=== PATIENT | male | born 1990 | race Caucasian/White ===

== ENCOUNTER 2016-11-17 17:32 | Emergency (ER) | payer MEDICAID ==
[~2016-11-17] VITALS: Ht 175.3 cm; Wt 72.7 kg
[2016-11-17] MEDS ORDERED: OLAN10TA3 PO (17:59)
[2016-11-17] MEDS ORDERED: ACET-784 PO (17:59)
[2016-11-17] MEDS ORDERED: CHLO25 PO (17:59)
[2016-11-17] MEDS ORDERED: VALP250 PO (17:59)
[2016-11-17] MEDS ORDERED: CHLO50I IM (17:59)
[2016-11-17] MEDS ORDERED: LORA-192 PO (17:59)
[2016-11-17] MEDS ORDERED: CLON.5 PO (17:59)
[2016-11-17] MEDS ORDERED: BISA10S PR (17:59)
[2016-11-17] MEDS ORDERED: FE RC (17:59)
[2016-11-17] MEDS ORDERED: SERT50TA12 PO (17:59)
[2016-11-17] MEDS ORDERED: DIPH25 PO (17:59)
[2016-11-17] MEDS ORDERED: MOM30 PO (17:59)
[2016-11-17] MEDS ORDERED: DSS100 PO (17:59)
[2016-11-17 19:14] LABS: BASOPHILS % (AUTO) 0.8 % (0.0-2.0); EOSINOPHILS % (AUTO) 3.3 % (1.0-6.0); HEMATOCRIT 40.1 % (41-53); HEMOGLOBIN 13.8 g/dL (13.5-17.5); LYMPHOCYTES # (AUTO) 1.8 K/uL (1.0-4.8); LYMPHOCYTES % (AUTO) 31.5 % (22.0-44.0); MEAN CORPUSCULAR HEMOGLOBIN 30.5 pg (26.0-34.0); MEAN CORPUSCULAR HGB CONC 34.4 G/dL (31.0-37.0); MEAN CORPUSCULAR VOLUME 89 fL (80-100); MONOCYTES # (AUTO) 0.7 K/uL (0.1-1.0); MONOCYTES % (AUTO) 12.1 % (2.0-9.0); NEUTROPHILS # (AUTO) 2.9 K/uL (1.8-7.7); NEUTROPHILS % (AUTO) 52.3 % (40.0-70.0); PLATELET COUNT (AUTO) 276 K/uL (150-450); RED BLOOD CELL COUNT(AUTO) 4.52 MIL/uL (4.50-5.90); WHITE BLOOD COUNT (AUTO) 5.6 K/uL (4.5-11.0)
[2016-11-17 19:22] LABS: ANION GAP 9 mmol/L (8-16); CALCIUM, TOTAL 9.3 mg/dL (8.8-10.5); CARBON DIOXIDE 28 mmol/L (22-29); CHLORIDE 103 mmol/L (98-107); CREATININE 1.01 mg/dL (0.60-1.30); GLOMERULAR FILTR. RATE CALC > 60 mL/min (>60); POTASSIUM 4.3 mmol/L (3.5-5.1); SODIUM SERUM 140 mmol/L (136-145); UREA NITROGEN, BLOOD 14 mg/dL (7-18)
[2016-11-17 19:29] LABS: ALANINE AMINOTRANSFERASE 75 U/L (12-78); ALBUMIN 3.8 g/dL (3.4-5.0); ASPARTATE AMINOTRANSFERASE 35 U/L (15-37); BILIRUBIN,TOTAL 0.4 mg/dL (0.1-1.0); TOTAL PROTEIN, SERUM 7.3 g/dL (6.4-8.2)
[2016-11-17 19:42] LABS: GLUCOSE, URINE (UA) NEGATIVE (NEGATIVE); KETONES,URINE NEGATIVE (NEGATIVE); LEUKOCYTE ESTERASE ,URINE NEGATIVE (NEGATIVE); OCCULT BLOOD,URINE NEGATIVE (NEGATIVE); PH,URINE 7.5 (5.0-8.0); PROTEIN,URINE NEGATIVE (NEGATIVE)
[2016-11-17 19:45] LABS: ADD UA MICROSCOPIC NO; APPEARANCE,URINE HAZY (CLEAR)
[2016-11-17 20:32] VITALS: BP 120/69
== END 2016-11-17 22:21 | disposition home or self-care (01) ==
LOC: EMS 17:34
DX: R07.9 Chest pain, unspecified (principal); F20.9 Schizophrenia, unspecified
CPT/HCPCS: 93005; 99285

== ENCOUNTER 2024-02-17 16:44 | Emergency (ER) | payer MEDICAID ==
[~2024-02-17] VITALS: Ht 180.3 cm; Wt 73.2 kg
[~2024-02-17 16:44] MED LIST: ACET-784 PO; BISA10SU11 PR; CHLO25TA69 PO; CHLO50I IM; CLON-592 PO; DIPH-1243 PO; DSS100 PO; LORA-192 PO; MAGN-169 PO; NA P266E RC; OLAN10TA74 PO; SERT-158 PO; VALP250C48 PO
[2024-02-17 19:26] VITALS: BP 128/82; PULSE 75; RESP 14; TEMP 98.3; O2SAT 100
[2024-02-17] MEDS ORDERED: ARIP10TA38 PO (20:09)
[2024-02-17] MEDS ORDERED: TRIH5TAB3 PO (20:09)
[2024-02-17] MEDS ORDERED: SERT-440 PO (20:09)
[2024-02-17] MEDS ORDERED: PANT20TA18 PO (20:09)
[2024-02-17] MEDS ORDERED: HALO10TA21 PO (20:09)
[2024-02-17] MEDS ORDERED: DULO-114 PO (20:09)
[2024-02-17] MEDS ORDERED: CHOL200059 PO (20:09)
[2024-02-17] MEDS ORDERED: OLAN15TA98 PO (20:09)
[2024-02-17] MEDS ORDERED: LITH300T PO (20:09)
[2024-02-17] MEDS ORDERED: IBUP-1492 PO (20:12)
[2024-02-17] MEDS: CYCLOBENZAPRINE HCL 10 MG TABLET PO ONE (20:24)
[2024-02-17] MEDS: LIDOCAINE 5% TRANSDERMAL PATCH TD ONE (20:25)
[2024-02-17] MEDS: KETOROLAC TROMETHAMINE 30 MG/ML VIAL IM ONE (20:25)
[2024-02-17 21:15] LABS: BASOPHILS % (AUTO) 0.9 % (0.0-2.0); EOSINOPHILS % (AUTO) 5.6 % (1.0-6.0); HEMATOCRIT 38.7 % (41-53); LYMPHOCYTES # (AUTO) 2.3 K/uL (1.0-4.8); LYMPHOCYTES % (AUTO) 26.6 % (22.0-44.0); MEAN CORPUSCULAR HEMOGLOBIN 29.6 pg (26.0-34.0); MEAN CORPUSCULAR HGB CONC 33.6 G/dL (31.0-37.0); MEAN CORPUSCULAR VOLUME 88 fL (80-100); MONOCYTES # (AUTO) 0.6 K/uL (0.1-1.0); MONOCYTES % (AUTO) 7.4 % (2.0-9.0); NEUTROPHILS # (AUTO) 5.1 K/uL (1.8-7.7); NEUTROPHILS % (AUTO) 59.5 % (40.0-70.0); PLATELET COUNT (AUTO) 338 K/uL (150-450); RED CELL DISTRIBUTION WIDTH 12.5 % (11.5-14.5); WHITE BLOOD COUNT (AUTO) 8.5 K/uL (4.5-11.0)
[2024-02-17 21:18] LABS: APPEARANCE,URINE CLEAR (CLEAR); BILIRUBIN,URINE NEGATIVE (NEGATIVE); COLOR,URINE YELLOW (YELLOW); GLUCOSE, URINE (UA) NEGATIVE (NEGATIVE); KETONES,URINE NEGATIVE (NEGATIVE); LEUKOCYTE ESTERASE ,URINE NEGATIVE (NEGATIVE); NITRATE,URINE NEGATIVE (NEGATIVE); OCCULT BLOOD,URINE NEGATIVE (NEGATIVE); PH,URINE 6.5 (5.0-8.0); PROTEIN,URINE NEGATIVE (NEGATIVE); SPECIFIC GRAVITIY, URINE 1.021 (1.003-1.030); UROBILINOGEN,URINE <=1.0 mg/dL (<=1.0)
[2024-02-17 21:22] LABS: ANION GAP 4 mmol/L (8-16); CALCIUM, TOTAL 8.8 mg/dL (8.8-10.5); CARBON DIOXIDE 31 mmol/L (22-29); CHLORIDE 103 mmol/L (98-107); CREATININE 0.84 mg/dL (0.60-1.30); GLOMERULAR FILTR. RATE CALC > 60 mL/min (>60); GLUCOSE,RANDOM 103 mg/dL (70-110); LITHIUM 0.86 mmol/L (0.60-1.20); POTASSIUM 3.6 mmol/L (3.5-5.1); SODIUM SERUM 138 mmol/L (136-145); UREA NITROGEN, BLOOD 9 mg/dL (7-18)
== END 2024-02-18 00:41 | disposition home or self-care (01) ==
LOC: EMS 16:44
DX: M54.50 Low back pain, unspecified (principal); F20.9 Schizophrenia, unspecified; Z98.890 Other specified postprocedural states
CPT/HCPCS: 99283; 80048; 80178; 81003; 85025; 36415; 96372; J1885

== ENCOUNTER 2024-05-06 19:03 | Emergency (ER) | payer MEDICAID ==
[~2024-05-06] VITALS: Ht 180.3 cm; Wt 75.5 kg
[~2024-05-06 19:03] MED LIST changes: -ACET-784 PO; +ARIP10TA38 PO; -BISA10SU11 PR; -CHLO25TA69 PO; -CHLO50I IM; +CHOL200059 PO; -CLON-592 PO; -DIPH-1243 PO; -DSS100 PO; +DULO-114 PO; +HALO10TA21 PO; +IBUP-1492 PO; +LITH300T PO; -LORA-192 PO; -MAGN-169 PO; -NA P266E RC; -OLAN10TA74 PO; +OLAN15TA98 PO; +PANT20TA18 PO; -SERT-158 PO; +SERT-440 PO; +TRIH5TAB3 PO; -VALP250C48 PO
[2024-05-06 19:14] VITALS: BP 117/77; PULSE 72; RESP 18; TEMP 98.3; O2SAT 98
[2024-05-06 19:22] LABS: COVID AG,FIA SOURCE NASAL SWAB
[2024-05-06 19:40] LABS: INFLUENZA TYPE A NEGATIVE FOR TYPE A (NEGATIVE); INFLUENZA TYPE B NEGATIVE FOR TYPE B (NEGATIVE); SARS-COV2 (COVID) ANTIGEN,FIA Negative (Negative)
[2024-05-06] MEDS ORDERED: ACETAMINOPHEN 500 MG TABLET PO ONE (21:45)
[2024-05-06] MEDS ORDERED: IBUP-1492 PO (21:46)
[2024-05-06] MEDS ORDERED: ACET-3385 PO (21:46)
== END 2024-05-06 21:51 | disposition home or self-care (01) ==
LOC: EDUNIT# 19:03 → EMS 19:10
DX: B34.9 Viral infection, unspecified (principal); R05.9 Cough, unspecified; F20.9 Schizophrenia, unspecified; Z79.899 Other long term (current) drug therapy; Z20.822 Contact with and (suspected) exposure to COVID-19
CPT/HCPCS: 87430; 87804; 99283